=== PATIENT | male | born 1965 | race Caucasian/White ===

== ENCOUNTER 2021-02-12 08:31 | Emergency (ER) | payer MEDICAID ==
[~2021-02-12] VITALS: Ht 193 cm; Wt 142.9 kg
[2021-02-12 08:32] VITALS: BP_SYST 112
[2021-02-12] MEDS ORDERED: KETOROLAC TROMETHAMINE 60 MG/2 ML VIAL IM ONE (09:15)
[2021-02-12] MEDS ORDERED: HYDR-3917 PO (09:35)
[2021-02-12] MEDS ORDERED: IBUP800T54 PO (09:35)
[2021-02-12 10:03] VITALS: BP_SYST 124
== END 2021-02-12 10:03 | disposition home or self-care (01) ==
LOC: SED 08:31
DX: R07.89 Other chest pain (principal); H93.8X3 Other specified disorders of ear, bilateral; F31.9 Bipolar disorder, unspecified; F41.9 Anxiety disorder, unspecified
CPT/HCPCS: 96372; 99283; J1885